=== PATIENT | male | born 1990 | race Caucasian/White ===

== ENCOUNTER 2016-06-15 23:40 | Emergency (ER) | payer OTHER ==
[2016-06-15 23:51] VITALS: BP 134/98
== END 2016-06-15 23:50 | disposition left against medical advice (07) ==
LOC: ED 23:40
DX: F14.10 Cocaine abuse, uncomplicated (principal); F10.10 Alcohol abuse, uncomplicated; F11.10 Opioid abuse, uncomplicated; F19.10 Other psychoactive substance abuse, uncomplicated

== ENCOUNTER 2016-07-19 00:48 | Emergency (ER) | payer OTHER ==
[2016-07-19 06:03] VITALS: BP 117/69
== END 2016-07-19 06:03 | disposition home or self-care (01) ==
LOC: ED 00:48
DX: R07.89 Other chest pain (principal); Z91.419 Personal history of unspecified adult abuse

== ENCOUNTER 2016-08-10 19:06 | Emergency (ER) | payer OTHER ==
[2016-08-10 20:43] LABS: BASOPHIL % 0.6 % (0-2); PLATELET COUNT 243 x10^3mcL (130-400); RED CELL DISTRIBUTION WIDTH 13.8 % (11.5-14.5)
[2016-08-10 20:49] LABS: microscopic required? NO
[2016-08-10 20:55] LABS: urine erythrocyte NEGATIVE (NEGATIVE)
[2016-08-10 20:56] LABS: ALBUMIN 4.8 g/dL (3.4-5.0); ALKALINE PHOSPHATASE 63 U/L (46-116); ALT/SGPT 16 U/L (16-63); AMYLASE 91 U/L (25-115); AST/SGOT 30 U/L (15-37); BILIRUBIN TOTAL 1.14 mg/dL (0.20-1.00); CALCIUM 9.3 mg/dL (8.5-10.1); CARBON DIOXIDE 27.7 mmol/L (21-32); CHLORIDE SERUM 99 mmol/L (98-107); CREATININE SERUM 0.8 mg/dL (0.7-1.3); GFR1 > 60 mL/min; GLUCOSE SERUM 111 mg/dL (74-106); LIPASE 291 IU/L (73-393); SODIUM SERUM 141 mmol/L (136-145); TOTAL PROTEIN, SERUM 7.9 g/dL (6.4-8.2)
[2016-08-10 20:58] LABS: POTASSIUM SERUM 2.9 mmol/L (3.5-5.1)
[2016-08-10 21:04] LABS: AMPHETAMINE QUAL UR NONE DETECTED (NEG <=1000)
[2016-08-10 22:59] VITALS: BP 121/72
== END 2016-08-10 22:59 | disposition home or self-care (01) ==
LOC: ED 19:06
PROVIDERS: Emergency Medicine
DX: F12.10 Cannabis abuse, uncomplicated (principal); E87.6 Hypokalemia
CPT/HCPCS: G0480; J1630; J2060; J3480; J7030

== ENCOUNTER 2017-03-29 19:56 | Emergency (ER) | payer SELFPAY ==
[2017-03-29 20:32] LABS: BASOPHIL % 1.2 % (0-2); PLATELET COUNT 217 x10^3mcL (130-400); RED CELL DISTRIBUTION WIDTH 12.8 % (11.5-14.5)
[2017-03-29 20:49] LABS: CALCIUM 8.8 mg/dL (8.5-10.1); CARBON DIOXIDE 24.7 mmol/L (21-32); CHLORIDE SERUM 103 mmol/L (98-107); CREATININE SERUM 1.1 mg/dL (0.7-1.3); GFR1 > 60 mL/min; GLUCOSE SERUM 104 mg/dL (74-106); POTASSIUM SERUM 3.3 mmol/L (3.5-5.1); SODIUM SERUM 141 mmol/L (136-145)
[2017-03-29 20:53] LABS: ALBUMIN 4.3 g/dL (3.4-5.0); ALKALINE PHOSPHATASE 48 U/L (46-116); ALT/SGPT 23 U/L (16-63); AST/SGOT 43 U/L (15-37); BILIRUBIN TOTAL 0.66 mg/dL (0.20-1.00)
[2017-03-29 21:23] LABS: microscopic required? NO
[2017-03-29 22:15] LABS: UA SPECIFIC GRAVITY 1.025 (1.005-1.035); urine erythrocyte NEGATIVE (NEGATIVE)
[2017-03-29 22:25] LABS: AMPHETAMINE QUAL UR NONE DETECTED (NEG <=1000)
[2017-03-29 23:49] VITALS: BP 122/69
== END 2017-03-29 23:49 | disposition home or self-care (01) ==
LOC: ED 19:56
PROVIDERS: Emergency Medicine
DX: R07.9 Chest pain, unspecified (principal)
CPT/HCPCS: 83880; G0480; J3411; J3475; J3490; J7030; Q0092

== ENCOUNTER 2017-04-11 13:20 | Emergency (ER) | payer SELFPAY ==
[~2017-04-11] VITALS: Ht 182.9 cm; Wt 72.6 kg
[2017-04-11 13:24] VITALS: Ht 182.9 cm; Wt 72.6 kg
[2017-04-11 14:56] VITALS: BP 147/85
== END 2017-04-11 14:56 | disposition home or self-care (01) ==
LOC: ED 13:20
DX: R07.89 Other chest pain (principal); F19.10 Other psychoactive substance abuse, uncomplicated; Z86.79 Personal history of other diseases of the circulatory system

== ENCOUNTER 2017-04-11 23:11 | Emergency (ER) | payer SELFPAY ==
[~2017-04-11] VITALS: Ht 182.9 cm; Wt 73.5 kg
[2017-04-12 00:18] VITALS: BP 131/96
== END 2017-04-12 00:18 | disposition home or self-care (01) ==
LOC: ED 23:11
DX: R07.89 Other chest pain (principal); F10.10 Alcohol abuse, uncomplicated; F12.10 Cannabis abuse, uncomplicated; F41.9 Anxiety disorder, unspecified; F22 Delusional disorders

== ENCOUNTER 2017-04-12 03:05 | Emergency (ER) | payer SELFPAY ==
[~2017-04-12] VITALS: Ht 182.9 cm; Wt 73.5 kg
[2017-04-12 03:24] VITALS: Ht 182.9 cm; Wt 73.5 kg
[2017-04-12 04:45] LABS: AMPHETAMINE QUAL UR NONE DETECTED (NEG <=1000)
[2017-04-12 07:04] VITALS: BP 129/75
== END 2017-04-12 07:04 | disposition home or self-care (01) ==
LOC: ED 03:05
PROVIDERS: Emergency Medicine
DX: F41.9 Anxiety disorder, unspecified (principal); R07.89 Other chest pain; R06.02 Shortness of breath; R11.10 Vomiting, unspecified

== ENCOUNTER 2017-04-13 23:12 | Emergency (ER) | payer SELFPAY ==
[2017-04-14 00:31] VITALS: BP 124/90
== END 2017-04-14 00:31 | disposition home or self-care (01) ==
LOC: ED 23:12
DX: F12.90 Cannabis use, unspecified, uncomplicated (principal); F10.129 Alcohol abuse with intoxication, unspecified; Z86.79 Personal history of other diseases of the circulatory system

== ENCOUNTER 2017-04-14 23:05 | Emergency (ER) | payer SELFPAY ==
[~2017-04-14] VITALS: Ht 170.2 cm; Wt 70.3 kg
[2017-04-14 23:40] VITALS: Ht 170.2 cm; Wt 70.3 kg
[2017-04-15 01:50] VITALS: BP 135/87
== END 2017-04-15 01:50 | disposition home or self-care (01) ==
LOC: ED 23:05
DX: F41.9 Anxiety disorder, unspecified (principal); F10.10 Alcohol abuse, uncomplicated; F12.10 Cannabis abuse, uncomplicated; R07.89 Other chest pain; R05 Cough; J02.9 Acute pharyngitis, unspecified; Z86.79 Personal history of other diseases of the circulatory system
CPT/HCPCS: Q0092

== ENCOUNTER 2017-04-17 23:54 | Emergency (ER) | payer SELFPAY ==
[~2017-04-17] VITALS: Ht 182.9 cm; Wt 81.6 kg
[2017-04-18 00:01] VITALS: BP 139/92; Ht 182.9 cm; Wt 81.6 kg
== END 2017-04-18 01:47 | disposition left against medical advice (07) ==
LOC: ED 23:54
DX: Z53.21 Procedure and treatment not carried out due to patient leaving prior to being seen by health care provider (principal)

== ENCOUNTER 2017-04-18 01:53 | Emergency (ER) | payer SELFPAY ==
[~2017-04-18] VITALS: Ht 180.3 cm; Wt 70.8 kg
[2017-04-18 02:05] VITALS: Ht 180.3 cm; Wt 70.8 kg
[2017-04-18 03:09] VITALS: BP 144/75
== END 2017-04-18 03:09 | disposition home or self-care (01) ==
LOC: ED 01:53
DX: R05 Cough (principal); R07.89 Other chest pain; R09.81 Nasal congestion; J02.9 Acute pharyngitis, unspecified

== ENCOUNTER 2017-04-19 20:21 | Emergency (ER) | payer SELFPAY ==
[~2017-04-19] VITALS: Ht 180.3 cm; Wt 71.2 kg
[2017-04-19 20:58] VITALS: Ht 180.3 cm; Wt 71.2 kg
[2017-04-19 22:27] LABS: PLATELET COUNT 217 x10^3mcL (130-400); RED CELL DISTRIBUTION WIDTH 13.2 % (11.5-14.5)
[2017-04-19 22:39] LABS: CHLORIDE SERUM 97 mmol/L (98-107); CREATININE SERUM 0.8 mg/dL (0.7-1.3); GFR1 > 60 mL/min; GLUCOSE SERUM 81 mg/dL (74-106); POTASSIUM SERUM 3.6 mmol/L (3.5-5.1); SODIUM SERUM 138 mmol/L (136-145)
[2017-04-19 22:52] LABS: ALBUMIN 4.7 g/dL (3.4-5.0); ALKALINE PHOSPHATASE 48 U/L (46-116); ALT/SGPT 46 U/L (16-63); AST/SGOT 51 U/L (15-37); BILIRUBIN TOTAL 0.8 mg/dL (0.20-1.00); FREE T4 0.85 ng/dL (0.76-1.46); TOTAL PROTEIN, SERUM 7.6 g/dL (6.4-8.2)
[2017-04-19 22:57] LABS: AMPHETAMINE QUAL UR NONE DETECTED (NEG <=1000)
[2017-04-20 04:24] LABS: ALBUMIN 4.6 g/dL (3.4-5.0); BILIRUBIN DIRECT 0.36 mg/dL (0.0-0.2); TOTAL PROTEIN, SERUM 7.6 g/dL (6.4-8.2)
[2017-04-20 04:36] LABS: BILIRUBIN TOTAL 1.35 mg/dL (0.20-1.00)
[2017-04-20 05:14] VITALS: BP 147/86
== END 2017-04-20 05:14 | disposition home or self-care (01) ==
LOC: ED 20:21
PROVIDERS: Emergency Medicine
DX: F19.10 Other psychoactive substance abuse, uncomplicated (principal); F10.229 Alcohol dependence with intoxication, unspecified; Y90.9 Presence of alcohol in blood, level not specified; F12.10 Cannabis abuse, uncomplicated; F11.10 Opioid abuse, uncomplicated; I31.9 Disease of pericardium, unspecified
CPT/HCPCS: 36415; 36600; 83880; 84439; G0480

== ENCOUNTER 2017-04-26 23:57 | Emergency (ER) | payer SELFPAY ==
[~2017-04-26] VITALS: Ht 182.9 cm; Wt 72.3 kg
[2017-04-27 00:05] VITALS: Ht 182.9 cm; Wt 72.3 kg
[2017-04-27 00:58] VITALS: BP 142/109
== END 2017-04-27 00:59 | disposition home or self-care (01) ==
LOC: ED 23:57
DX: F41.9 Anxiety disorder, unspecified (principal); Z86.79 Personal history of other diseases of the circulatory system

== ENCOUNTER 2017-05-30 18:17 | Emergency (ER) | payer MEDICAID ==
[~2017-05-30] VITALS: Ht 182.9 cm; Wt 71.7 kg
[2017-05-30 19:47] VITALS: BP 137/78
== END 2017-05-30 19:47 | disposition left against medical advice (07) ==
LOC: ED 18:17
DX: F19.10 Other psychoactive substance abuse, uncomplicated (principal); F41.9 Anxiety disorder, unspecified

== ENCOUNTER 2017-05-30 21:45 | Emergency (ER) | payer MEDICAID ==
[~2017-05-30] VITALS: Ht 182.9 cm; Wt 72.6 kg
[2017-05-30 21:46] VITALS: BP 148/90; Ht 182.9 cm; Wt 72.6 kg
== END 2017-05-30 22:40 | disposition home or self-care (01) ==
LOC: ED 21:45
DX: F41.9 Anxiety disorder, unspecified (principal); J31.0 Chronic rhinitis

== ENCOUNTER 2017-06-01 18:51 | Emergency (ER) | payer MEDICAID ==
[~2017-06-01] VITALS: Ht 182.9 cm; Wt 70.8 kg
[2017-06-01 19:18] VITALS: Ht 182.9 cm; Wt 70.8 kg
[2017-06-01 21:56] VITALS: BP 128/68
== END 2017-06-01 21:56 | disposition home or self-care (01) ==
LOC: ED 18:51
DX: F41.9 Anxiety disorder, unspecified (principal); Z76.0 Encounter for issue of repeat prescription
CPT/HCPCS: Q0169

== ENCOUNTER 2017-06-02 03:11 | Emergency (ER) | payer MEDICAID ==
[~2017-06-02] VITALS: Ht 182.9 cm; Wt 79.4 kg
[2017-06-02 03:14] VITALS: Ht 182.9 cm; Wt 79.4 kg
[2017-06-02 03:28] VITALS: BP 134/74
== END 2017-06-02 03:28 | disposition home or self-care (01) ==
LOC: ED 03:11
DX: F41.9 Anxiety disorder, unspecified (principal)

== ENCOUNTER 2017-06-02 09:22 | Emergency (ER) | payer MEDICAID ==
[~2017-06-02] VITALS: Ht 182.9 cm; Wt 72.6 kg
[2017-06-02 09:25] VITALS: Ht 182.9 cm; Wt 72.6 kg
[2017-06-02 10:14] VITALS: BP 139/84
== END 2017-06-02 10:14 | disposition home or self-care (01) ==
LOC: ED 09:22
DX: F41.1 Generalized anxiety disorder (principal)

== ENCOUNTER 2017-06-03 01:23 | Emergency (ER) | payer MEDICAID ==
[~2017-06-03] VITALS: Ht 182.9 cm; Wt 72.6 kg
[2017-06-03 01:29] VITALS: Ht 182.9 cm; Wt 72.6 kg
[2017-06-03 02:30] VITALS: BP 136/87
== END 2017-06-03 02:30 | disposition home or self-care (01) ==
LOC: ED 01:23
DX: F41.9 Anxiety disorder, unspecified (principal); F32.9 Major depressive disorder, single episode, unspecified; Z86.79 Personal history of other diseases of the circulatory system

== ENCOUNTER 2017-06-04 19:03 | Emergency (ER) | payer MEDICAID ==
[~2017-06-04] VITALS: Ht 182.9 cm; Wt 70.3 kg
[2017-06-04 19:16] VITALS: Ht 182.9 cm; Wt 70.3 kg
[2017-06-04 20:31] VITALS: BP 132/78
== END 2017-06-04 20:31 | disposition home or self-care (01) ==
LOC: ED 19:03
DX: F41.9 Anxiety disorder, unspecified (principal); F32.9 Major depressive disorder, single episode, unspecified

== ENCOUNTER 2017-06-05 16:35 | Emergency (ER) | payer MEDICAID ==
[~2017-06-05] VITALS: Ht 182.9 cm; Wt 72.6 kg
[2017-06-05 17:06] VITALS: Ht 182.9 cm; Wt 72.6 kg
[2017-06-05 17:41] LABS: PLATELET COUNT 216 x10^3mcL (130-400); RED CELL DISTRIBUTION WIDTH 12.7 % (11.5-14.5)
[2017-06-05 18:06] LABS: CALCIUM 8.2 mg/dL (8.5-10.1); CHLORIDE SERUM 105 mmol/L (98-107); CREATININE SERUM 0.8 mg/dL (0.7-1.3); GFR1 > 60 mL/min; GLUCOSE SERUM 110 mg/dL (74-106); POTASSIUM SERUM 3.2 mmol/L (3.5-5.1); SODIUM SERUM 141 mmol/L (136-145)
[2017-06-05 18:11] LABS: ALKALINE PHOSPHATASE 53 U/L (46-116); ALT/SGPT 20 U/L (16-63); AST/SGOT 26 U/L (15-37); BILIRUBIN TOTAL 0.29 mg/dL (0.20-1.00); TOTAL PROTEIN, SERUM 6.8 g/dL (6.4-8.2)
[2017-06-05 18:35] LABS: microscopic required? NO
[2017-06-05 18:54] LABS: UA SPECIFIC GRAVITY 1.015 (1.005-1.035); urine erythrocyte NEGATIVE (NEGATIVE)
[2017-06-05 19:10] LABS: AMPHETAMINE QUAL UR NONE DETECTED (NEG <=1000)
[2017-06-06 08:07] LABS: FREE T4 0.75 ng/dL (0.76-1.46); FREE THYROXINE INDEX 2.1 ug/dL (1.4-4.5); T4(THYROXINE) 5.9 ug/dL (4.7-13.3)
[2017-06-06 08:08] LABS: T3 TOTAL 0.72 ng/mL
[2017-06-06 08:20] LABS: CHOLESTEROL/HDL RATIO 2.1; MAGNESIUM 2.4 mg/dL (1.8-2.4); PHOSPHOROUS 3.9 mg/dL (2.5-4.9)
[2017-06-06 14:00] VITALS: BP 142/78
== END 2017-06-06 14:00 | disposition home or self-care (01) ==
LOC: ED 16:35
PROVIDERS: Emergency Medicine; Family Medicine Sports Medicine
DX: G92 Toxic encephalopathy (principal); T43.222A Poisoning by selective serotonin reuptake inhibitors, intentional self-harm, initial encounter; F99 Mental disorder, not otherwise specified; F32.9 Major depressive disorder, single episode, unspecified; F41.9 Anxiety disorder, unspecified; Z86.59 Personal history of other mental and behavioral disorders; Y92.89 Other specified places as the place of occurrence of the external cause
CPT/HCPCS: 36415; 83880; 84439; G0480

== ENCOUNTER 2017-06-07 03:59 | Emergency (ER) | payer MEDICAID ==
[~2017-06-07] VITALS: Ht 182.9 cm; Wt 70.8 kg
[2017-06-07 04:06] VITALS: Ht 182.9 cm; Wt 70.8 kg
[2017-06-07 04:18] VITALS: BP 141/89
== END 2017-06-07 04:18 | disposition home or self-care (01) ==
LOC: ED 03:59
DX: F41.9 Anxiety disorder, unspecified (principal); F32.9 Major depressive disorder, single episode, unspecified

== ENCOUNTER 2017-06-07 22:52 | Emergency (ER) | payer MEDICAID ==
[~2017-06-07] VITALS: Ht 182.9 cm; Wt 69.8 kg
[2017-06-07 23:38] VITALS: Ht 182.9 cm; Wt 69.8 kg
[2017-06-08 02:07] LABS: AMPHETAMINE QUAL UR NONE DETECTED (NEG <=1000)
[2017-06-08 05:00] VITALS: BP 128/9
== END 2017-06-08 05:00 | disposition home or self-care (01) ==
LOC: ED 22:52
PROVIDERS: Emergency Medicine
DX: F19.10 Other psychoactive substance abuse, uncomplicated (principal); F41.9 Anxiety disorder, unspecified; F32.9 Major depressive disorder, single episode, unspecified; Z86.79 Personal history of other diseases of the circulatory system
CPT/HCPCS: J7030

== ENCOUNTER 2018-01-05 09:53 | Emergency (ER) | payer OTHER ==
[~2018-01-05] VITALS: Ht 180.3 cm; Wt 80.3 kg
[2018-01-05 10:08] VITALS: Ht 180.3 cm; Wt 80.3 kg
[2018-01-05 10:50] LABS: BASOPHIL % 0.7 % (0-2); PLATELET COUNT 233 x10^3mcL (130-400); RED CELL DISTRIBUTION WIDTH 13.7 % (11.5-14.5)
[2018-01-05 10:51] LABS: CALCIUM 8.7 mg/dL (8.5-10.1); CARBON DIOXIDE 26.6 mmol/L (21-32); CHLORIDE SERUM 103 mmol/L (98-107); CREATININE SERUM 0.9 mg/dL (0.7-1.3); GFR1 > 60 mL/min; GLUCOSE SERUM 98 mg/dL (74-106); POTASSIUM SERUM 3.9 mmol/L (3.5-5.1); SODIUM SERUM 139 mmol/L (136-145)
[2018-01-05 10:58] LABS: ALBUMIN 4.4 g/dL (3.4-5.0); ALKALINE PHOSPHATASE 72 U/L (46-116); ALT/SGPT 23 U/L (16-63); AST/SGOT 19 U/L (15-37); BILIRUBIN TOTAL 0.4 mg/dL (0.20-1.00); LIPASE 300 IU/L (73-393); TOTAL PROTEIN, SERUM 7.6 g/dL (6.4-8.2)
[2018-01-05 11:32] VITALS: BP 131/68
== END 2018-01-05 11:32 | disposition home or self-care (01) ==
LOC: ED 09:53
PROVIDERS: Emergency Medicine
DX: K22.6 Gastro-esophageal laceration-hemorrhage syndrome (principal); F10.20 Alcohol dependence, uncomplicated
CPT/HCPCS: 36415; Q0092

== ENCOUNTER 2018-01-10 23:06 | Emergency (ER) | payer OTHER ==
[~2018-01-10] VITALS: Ht 182.9 cm; Wt 80.7 kg
[2018-01-10 23:27] VITALS: BP 130/71; Ht 182.9 cm; Wt 80.7 kg
[2018-01-11 02:00] LABS: BASOPHIL % 0.4 % (0-2); PLATELET COUNT 249 x10^3mcL (130-400); RED CELL DISTRIBUTION WIDTH 12.5 % (11.5-14.5)
[2018-01-11 02:14] LABS: CALCIUM 8.5 mg/dL (8.5-10.1); CARBON DIOXIDE 25.8 mmol/L (21-32); CHLORIDE SERUM 106 mmol/L (98-107); CREATININE SERUM 0.9 mg/dL (0.7-1.3); GFR1 > 60 mL/min; GLUCOSE SERUM 89 mg/dL (74-106); POTASSIUM SERUM 3.6 mmol/L (3.5-5.1); SODIUM SERUM 143 mmol/L (136-145)
[2018-01-11 02:17] LABS: ALBUMIN 4.4 g/dL (3.4-5.0); ALKALINE PHOSPHATASE 86 U/L (46-116); ALT/SGPT 40 U/L (16-63); AST/SGOT 14 U/L (15-37); BILIRUBIN TOTAL 0.24 mg/dL (0.20-1.00); LIPASE 429 IU/L (73-393); TOTAL PROTEIN, SERUM 7.8 g/dL (6.4-8.2)
== END 2018-01-11 01:20 | disposition left against medical advice (07) ==
LOC: ED 23:06
PROVIDERS: Emergency Medicine
DX: F10.129 Alcohol abuse with intoxication, unspecified (principal); F41.9 Anxiety disorder, unspecified
CPT/HCPCS: 36415; 83880; G0480; Q0092

== ENCOUNTER 2018-02-03 11:55 | Emergency (ER) | payer OTHER ==
[~2018-02-03] VITALS: Ht 188 cm; Wt 80.3 kg
[2018-02-03 12:13] VITALS: Ht 188 cm; Wt 80.3 kg
[2018-02-03 13:31] VITALS: BP 120/82
== END 2018-02-03 13:31 | disposition home or self-care (01) ==
LOC: ED 11:55
DX: L03.012 Cellulitis of left finger (principal); I10 Essential (primary) hypertension; F41.9 Anxiety disorder, unspecified; F10.10 Alcohol abuse, uncomplicated; F12.10 Cannabis abuse, uncomplicated
CPT/HCPCS: Q0092

== ENCOUNTER 2018-04-01 07:28 | Emergency (ER) | payer OTHER ==
[~2018-04-01] VITALS: Ht 182.9 cm; Wt 75.7 kg
[2018-04-01 07:31] VITALS: Ht 182.9 cm; Wt 75.7 kg
[2018-04-01 08:16] LABS: BASOPHIL % 0.3 % (0-2); PLATELET COUNT 243 x10^3mcL (130-400); RED CELL DISTRIBUTION WIDTH 13.7 % (11.5-14.5)
[2018-04-01 08:24] LABS: CARBON DIOXIDE 25.1 mmol/L (21-32); CHLORIDE SERUM 99 mmol/L (98-107); GFR1 > 60 mL/min; GLUCOSE SERUM 101 mg/dL (74-106); POTASSIUM SERUM 4.1 mmol/L (3.5-5.1); SODIUM SERUM 137 mmol/L (136-145)
[2018-04-01 08:29] LABS: ALKALINE PHOSPHATASE 103 U/L (46-116); ALT/SGPT 22 U/L (16-63); AST/SGOT 24 U/L (15-37); MAGNESIUM 1.9 mg/dL (1.8-2.4)
[2018-04-01 08:31] LABS: TOTAL PROTEIN, SERUM 8.5 g/dL (6.4-8.2)
[2018-04-01 09:29] VITALS: BP 151/83
[2018-04-01 09:57] LABS: AMPHETAMINE QUAL UR NONE DETECTED (See below)
== END 2018-04-01 09:29 | disposition home or self-care (01) ==
LOC: ED 07:28
PROVIDERS: Specialist
DX: M21.332 Wrist drop, left wrist (principal); I10 Essential (primary) hypertension; F32.9 Major depressive disorder, single episode, unspecified; F41.9 Anxiety disorder, unspecified
CPT/HCPCS: 36415; G0480; J7030; Q0162

== ENCOUNTER 2018-04-06 13:52 | Emergency (ER) | payer OTHER ==
[~2018-04-06] VITALS: Ht 182.9 cm; Wt 76.7 kg
[2018-04-06 17:46] VITALS: BP 138/73
== END 2018-04-06 16:15 | disposition left against medical advice (07) ==
LOC: ED 13:52
DX: G56.32 Lesion of radial nerve, left upper limb (principal); I10 Essential (primary) hypertension; F41.9 Anxiety disorder, unspecified; F31.9 Bipolar disorder, unspecified; F10.10 Alcohol abuse, uncomplicated

== ENCOUNTER 2018-04-09 00:04 | Emergency (ER) | payer OTHER ==
[~2018-04-09] VITALS: Ht 180.3 cm; Wt 75.7 kg
[2018-04-09 00:11] VITALS: BP 151/81; Ht 180.3 cm; Wt 75.7 kg
== END 2018-04-09 01:30 | disposition home or self-care (01) ==
LOC: ED 00:04
DX: S60.511A Abrasion of right hand, initial encounter (principal); I10 Essential (primary) hypertension; F41.9 Anxiety disorder, unspecified; W22.8XXA Striking against or struck by other objects, initial encounter; Y93.89 Activity, other specified; Y92.89 Other specified places as the place of occurrence of the external cause; Y99.8 Other external cause status
CPT/HCPCS: Q0092

== ENCOUNTER 2018-04-09 11:04 | Emergency (ER) | payer OTHER ==
[~2018-04-09] VITALS: Ht 182.9 cm; Wt 75.7 kg
[2018-04-09 11:27] VITALS: BP 140/111; Ht 182.9 cm; Wt 75.7 kg
== END 2018-04-09 12:09 | disposition home or self-care (01) ==
LOC: ED 11:04
DX: M79.89 Other specified soft tissue disorders (principal); I10 Essential (primary) hypertension; F41.9 Anxiety disorder, unspecified; F32.9 Major depressive disorder, single episode, unspecified; F10.10 Alcohol abuse, uncomplicated; F12.10 Cannabis abuse, uncomplicated
CPT/HCPCS: Q0092

== ENCOUNTER 2018-04-10 14:44 | Emergency (ER) | payer OTHER ==
[2018-04-10 15:34] VITALS: Ht 182.9 cm
[2018-04-10 16:47] VITALS: BP 144/93
== END 2018-04-10 16:47 | disposition left against medical advice (07) ==
LOC: ED 14:44
DX: Z53.21 Procedure and treatment not carried out due to patient leaving prior to being seen by health care provider (principal)

== ENCOUNTER 2018-04-10 17:09 | Emergency (ER) | payer OTHER ==
[~2018-04-10] VITALS: Ht 182.9 cm; Wt 75.7 kg
[2018-04-10 17:16] VITALS: BP 132/73; Ht 182.9 cm; Wt 75.7 kg
== END 2018-04-10 18:27 | disposition home or self-care (01) ==
LOC: ED 17:09
DX: R20.2 Paresthesia of skin (principal)

== ENCOUNTER 2018-04-11 14:54 | Emergency (ER) | payer OTHER | END 2018-04-11 15:39 | disposition left against medical advice (07) | LOC: ED 14:54 | DX: Z53.21 Procedure and treatment not carried out due to patient leaving prior to being seen by health care provider (principal) ==

== ENCOUNTER 2019-06-08 19:36 | Emergency (ER) | payer OTHER ==
[~2019-06-08] VITALS: Ht 182.9 cm; Wt 78.1 kg
[2019-06-08 19:38] VITALS: Ht 182.9 cm; Wt 78.1 kg
[2019-06-08 20:01] LABS: BASOPHIL % 0.9 % (0-2); PLATELET COUNT 217 x10^3mcL (130-400); RED CELL DISTRIBUTION WIDTH 12.5 % (11.5-14.5)
[2019-06-08 20:09] LABS: CHLORIDE SERUM 105 mmol/L (98-107); CREATININE SERUM 1.1 mg/dL (0.7-1.3); GFR1 > 60 mL/min; GLUCOSE SERUM 107 mg/dL (74-106); POTASSIUM SERUM 3.5 mmol/L (3.5-5.1); SODIUM SERUM 144 mmol/L (136-145)
[2019-06-08 20:13] LABS: ALBUMIN 4.5 g/dL (3.4-5.0); ALKALINE PHOSPHATASE 66 U/L (46-116); ALT/SGPT 22 U/L (16-63); AST/SGOT 19 U/L (15-37); BILIRUBIN TOTAL 0.3 mg/dL (0.20-1.00); TOTAL PROTEIN, SERUM 7.6 g/dL (6.4-8.2)
[2019-06-08 22:22] LABS: AMPHETAMINE QUAL UR NONE DETECTED (See below)
[2019-06-09 08:07] VITALS: BP 111/66
== END 2019-06-09 08:07 | disposition home or self-care (01) ==
LOC: ED 19:36
PROVIDERS: Emergency Medicine
DX: R45.851 Suicidal ideations (principal)
CPT/HCPCS: 36415; G0480; J1630; J2060

== ENCOUNTER 2019-06-09 10:09 | Emergency (ER) | payer OTHER ==
[~2019-06-09] VITALS: Ht 182.9 cm; Wt 63.5 kg
[2019-06-09 10:14] VITALS: Ht 182.9 cm; Wt 63.5 kg
[2019-06-10 10:36] VITALS: BP 110/56
== END 2019-06-10 10:36 ==
LOC: ED 10:09
DX: R45.851 Suicidal ideations (principal); Z72.89 Other problems related to lifestyle; I10 Essential (primary) hypertension; F32.9 Major depressive disorder, single episode, unspecified; F41.9 Anxiety disorder, unspecified; F17.210 Nicotine dependence, cigarettes, uncomplicated
CPT/HCPCS: 36415; G0480

== ENCOUNTER 2019-10-06 19:58 | Emergency (ER) | payer OTHER ==
[~2019-10-06] VITALS: Ht 182.9 cm; Wt 90.7 kg
[2019-10-06 20:07] VITALS: Ht 182.9 cm; Wt 90.7 kg
[2019-10-06 20:40] LABS: BASOPHIL % 0.6 % (0-2); PLATELET COUNT 215 x10^3mcL (130-400); RED CELL DISTRIBUTION WIDTH 13.2 % (11.5-14.5)
[2019-10-06 20:49] LABS: CALCIUM 8.4 mg/dL (8.5-10.1); CARBON DIOXIDE 29.9 mmol/L (21-32); CHLORIDE SERUM 105 mmol/L (98-107); GFR1 > 60 mL/min; GLUCOSE SERUM 110 mg/dL (74-106); POTASSIUM SERUM 3.5 mmol/L (3.5-5.1); SODIUM SERUM 142 mmol/L (136-145)
[2019-10-06 20:54] LABS: ALBUMIN 4.2 g/dL (3.4-5.0); ALKALINE PHOSPHATASE 56 U/L (46-116); ALT/SGPT 24 U/L (16-63); AST/SGOT 19 U/L (15-37); BILIRUBIN TOTAL 0.6 mg/dL (0.20-1.00); CHOLESTEROL 174 mg/dL (<200); TOTAL PROTEIN, SERUM 7.3 g/dL (6.4-8.2)
[2019-10-07 07:23] VITALS: BP 117/61
== END 2019-10-07 07:23 | disposition home or self-care (01) ==
LOC: ED 19:58
PROVIDERS: Emergency Medicine
DX: F10.129 Alcohol abuse with intoxication, unspecified (principal); I10 Essential (primary) hypertension
CPT/HCPCS: G0480; J7030; Q0092

== ENCOUNTER 2020-03-10 14:34 | Emergency (ER) | payer OTHER ==
[~2020-03-10] VITALS: Ht 182.9 cm; Wt 81.6 kg
[2020-03-10 14:40] VITALS: Ht 182.9 cm; Wt 81.6 kg
[2020-03-10 16:13] LABS: BASOPHIL % 0.6 % (0.2-1.5); PLATELET COUNT 230 x10^3mcL (152-348); RED CELL DISTRIBUTION WIDTH 13.9 % (12.1-16.2)
[2020-03-10 16:44] LABS: CALCIUM 8.6 mg/dL (8.5-10.1); CARBON DIOXIDE 26.8 mmol/L (21-32); CHLORIDE SERUM 101 mmol/L (98-107); CREATININE SERUM 0.9 mg/dL (0.7-1.3); GFR1 > 60 mL/min; GLUCOSE SERUM 102 mg/dL (74-106); POTASSIUM SERUM 3.4 mmol/L (3.5-5.1); SODIUM SERUM 139 mmol/L (136-145)
[2020-03-10 16:48] LABS: ALBUMIN 4.2 g/dL (3.4-5.0); ALKALINE PHOSPHATASE 62 U/L (46-116); ALT/SGPT 43 U/L (16-63); AST/SGOT 27 U/L (15-37); BILIRUBIN TOTAL 0.37 mg/dL (0.20-1.00); TOTAL PROTEIN, SERUM 7.4 g/dL (6.4-8.2)
[2020-03-10 18:12] LABS: AMPHETAMINE QUAL UR NONE DETECTED (See below)
[2020-03-12 12:58] VITALS: BP 134/82
== END 2020-03-12 12:58 | disposition designated cancer center or children's hospital (05) ==
LOC: ED 14:34
PROVIDERS: Student in an Organized Health Care Education/Training Program
DX: R56.9 Unspecified convulsions (principal); R45.851 Suicidal ideations; I10 Essential (primary) hypertension; F15.10 Other stimulant abuse, uncomplicated; F12.10 Cannabis abuse, uncomplicated; F11.10 Opioid abuse, uncomplicated; Z20.822 Contact with and (suspected) exposure to COVID-19; Z02.79 Encounter for issue of other medical certificate
CPT/HCPCS: G0480; Q0162; U0003

== ENCOUNTER → 2020-03-10 | Emergency (ER) | payer OTHER | LOC: CANPREER → ED 14:34 | DX: Z02.89 Encounter for other administrative examinations (principal) ==

== ENCOUNTER 2020-04-06 16:10 | Emergency (ER) | payer OTHER ==
[~2020-04-06] VITALS: Ht 182.9 cm; Wt 79.4 kg
[2020-04-06 16:41] VITALS: Ht 182.9 cm; Wt 79.4 kg
[2020-04-06 17:04] LABS: PLATELET COUNT 256 x10^3mcL (152-348); RED CELL DISTRIBUTION WIDTH 13.3 % (12.1-16.2)
[2020-04-06 17:32] LABS: ALBUMIN 4.1 g/dL (3.4-5.0); ALKALINE PHOSPHATASE 63 U/L (46-116); ALT/SGPT 37 U/L (16-63); AST/SGOT 39 U/L (15-37); BILIRUBIN TOTAL 0.17 mg/dL (0.20-1.00); CALCIUM 8.4 mg/dL (8.5-10.1); CARBON DIOXIDE 27.9 mmol/L (21-32); CHLORIDE SERUM 108 mmol/L (98-107); CREATININE SERUM 0.9 mg/dL (0.7-1.3); GFR1 > 60 mL/min; GLUCOSE SERUM 101 mg/dL (74-106); POTASSIUM SERUM 3.8 mmol/L (3.5-5.1); SODIUM SERUM 146 mmol/L (136-145); TOTAL PROTEIN, SERUM 7.2 g/dL (6.4-8.2)
[2020-04-06 17:49] LABS: AMPHETAMINE QUAL UR NONE DETECTED (See below)
[2020-04-06 19:21] VITALS: BP 120/73
== END 2020-04-06 19:21 | disposition home or self-care (01) ==
LOC: ED 16:10
PROVIDERS: Emergency Medicine
DX: F19.10 Other psychoactive substance abuse, uncomplicated (principal); F10.129 Alcohol abuse with intoxication, unspecified; I10 Essential (primary) hypertension
CPT/HCPCS: G0480; Q0162

== ENCOUNTER 2020-04-07 12:56 | Emergency (ER) | payer OTHER ==
[~2020-04-07] VITALS: Ht 170.2 cm; Wt 68.0 kg
[2020-04-07 13:05] VITALS: Ht 170.2 cm; Wt 68.0 kg
[2020-04-07 14:21] LABS: BASOPHIL % 1.4 % (0.2-1.5); PLATELET COUNT 281 x10^3mcL (152-348); RED CELL DISTRIBUTION WIDTH 13.4 % (12.1-16.2)
[2020-04-07 14:50] LABS: ALBUMIN 4.3 g/dL (3.4-5.0); ALKALINE PHOSPHATASE 70 U/L (46-116); ALT/SGPT 40 U/L (16-63); AST/SGOT 35 U/L (15-37); BILIRUBIN TOTAL 0.2 mg/dL (0.20-1.00); CALCIUM 8.2 mg/dL (8.5-10.1); CARBON DIOXIDE 30.7 mmol/L (21-32); CHLORIDE SERUM 108 mmol/L (98-107); CREATININE SERUM 0.9 mg/dL (0.7-1.3); GFR1 > 60 mL/min; GLUCOSE SERUM 100 mg/dL (74-106); POTASSIUM SERUM 3.9 mmol/L (3.5-5.1); SODIUM SERUM 146 mmol/L (136-145); TOTAL PROTEIN, SERUM 7.5 g/dL (6.4-8.2)
[2020-04-07 14:56] LABS: AMPHETAMINE QUAL UR NONE DETECTED (See below)
[2020-04-08 09:09] VITALS: BP 131/89
== END 2020-04-08 09:09 | disposition home or self-care (01) ==
LOC: ED 12:56
PROVIDERS: Student in an Organized Health Care Education/Training Program
DX: R45.851 Suicidal ideations (principal); F10.129 Alcohol abuse with intoxication, unspecified; F12.929 Cannabis use, unspecified with intoxication, unspecified; I10 Essential (primary) hypertension; F31.9 Bipolar disorder, unspecified; Z20.828 Contact with and (suspected) exposure to other viral communicable diseases
CPT/HCPCS: G0480; J1885; Q0162; U0003